=== PATIENT | male | born 1960 | race Caucasian/White ===

== ENCOUNTER → 2020-08-23 | Outpatient (CLI) | payer OTHER ==
[~2020-08-23] MED LIST: ATORVASTATIN CA20 MG PO; CITALOPRAM HBR20 MG PO; FOLIC ACID1 MG PO; GOODY S PO; LEVETIRACETAM1000 MG PO; METOPROLOL TART25 MG PO; OLANZAPINE7.5 MG PO; QUETIAPINE FUMA50 MG PO; TAMSULOSIN HCL0.4 MG PO; THIAMINE HCL100 MG PO
== END ==
LOC: CT 11:21
DX: C18.7 Malignant neoplasm of sigmoid colon (principal); R91.1 Solitary pulmonary nodule; Z12.5 Encounter for screening for malignant neoplasm of prostate; Z85.048 Personal history of other malignant neoplasm of rectum, rectosigmoid junction, and anus; K90.9 Intestinal malabsorption, unspecified; D50.9 Iron deficiency anemia, unspecified; K83.8 Other specified diseases of biliary tract; K86.89 Other specified diseases of pancreas; N28.1 Cyst of kidney, acquired
CPT/HCPCS: 71260; Q9967

== ENCOUNTER → 2020-10-10 | Outpatient (CLI) | payer OTHER | LOC: US 09:30 → CT 10:00 → US 10:02 | DX: C18.7 Malignant neoplasm of sigmoid colon (principal); R93.2 Abnormal findings on diagnostic imaging of liver and biliary tract; R93.429 Abnormal radiologic findings on diagnostic imaging of unspecified kidney; Z85.048 Personal history of other malignant neoplasm of rectum, rectosigmoid junction, and anus; N28.9 Disorder of kidney and ureter, unspecified | CPT/HCPCS: 36415; 74170; 76705; 82565; Q9967 ==

== ENCOUNTER → 2020-10-28 | Day surgery (SDC) | payer OTHER | END | disposition home or self-care (01) | LOC: OR 08:44 | DX: D12.2 Benign neoplasm of ascending colon (principal); D12.4 Benign neoplasm of descending colon; D12.3 Benign neoplasm of transverse colon; K21.9 Gastro-esophageal reflux disease without esophagitis; E78.5 Hyperlipidemia, unspecified; I10 Essential (primary) hypertension; J44.9 Chronic obstructive pulmonary disease, unspecified; B19.20 Unspecified viral hepatitis C without hepatic coma; M19.90 Unspecified osteoarthritis, unspecified site; Z20.822 Contact with and (suspected) exposure to COVID-19; Z85.048 Personal history of other malignant neoplasm of rectum, rectosigmoid junction, and anus; Z80.0 Family history of malignant neoplasm of digestive organs | CPT/HCPCS: J2704; J7030; J7120 ==

== ENCOUNTER → 2020-12-07 | Outpatient (CLI) | payer OTHER | LOC: CT 11-21 15:30 | DX: N28.1 Cyst of kidney, acquired (principal); R91.1 Solitary pulmonary nodule; N28.9 Disorder of kidney and ureter, unspecified; K86.1 Other chronic pancreatitis | CPT/HCPCS: 36415; 74170; 82565; Q9967 ==